=== PATIENT | female | born 1965 | race Caucasian/White ===

== ENCOUNTER 2021-01-17 04:10 | Inpatient (IN) | payer OTHER ==
[2021-01-11 13:41] VITALS: BMI 23.9
[2021-01-17] MEDS ORDERED: VANCOMYCIN 1 GRAM (PRE-DOCKED) 1,000 MG/250 ML BAG IVPB ONE ×2 (07:00→11:12)
[2021-01-17] MEDS ORDERED: CEFAZOLIN 2 GM/D5W 2 GM/50 ML ML IVPB ONE (07:00)
[2021-01-17] MEDS ORDERED: ceFAZolin SODIUM 1 GM VIAL ONE (11:12)
[2021-01-17] MEDS ORDERED: BUPIVACAINE LIPOSOME/PF (EXPAREL) 266 MG/20 ML VIAL ONE (11:42)
[2021-01-17] MEDS ORDERED: MIDAZOLAM HCL 2 MG/2 ML SINGLE DOSE VIAL ONE ×3 (11:42→12:53)
[2021-01-17] MEDS ORDERED: VANCOMYCIN 1,000 MG VIAL (RESTRICTED TO ID ONLY) IVPB ONE (12:35)
[2021-01-17] MEDS ORDERED: TRANEXAMIC ACID 1000 MG/10 ML VIAL ONE ×2 (12:50→15:18)
[2021-01-17] MEDS ORDERED: ceFAZolin 2 GRAM PREMIX BAG IVPB ONE (12:50)
[2021-01-17] MEDS ORDERED: PROPOFOL 20 ML ONE ×6 (12:51→14:55)
[2021-01-17] MEDS ORDERED: traMADol HCL 50 MG TABLET PO PRN (15:23)
[2021-01-17] MEDS ORDERED: oxyCODONE HCL 5 MG TABLET PO PRN ×2 (15:23)
[2021-01-17] MEDS ORDERED: ONDANSETRON 4 MG/2 ML VIAL IVPUSH PRN ×2 (15:23)
[2021-01-17] MEDS ORDERED: MAGNESIUM HYDROX 2400MG/30ML ORAL SUSPENSION 30 ML CUP PO PRN (15:23)
[2021-01-17] MEDS ORDERED: MAG HYDROX/AL HYDROX/SIMETH 30 ML UNIT-DOSE CUP PO PRN (15:23)
[2021-01-17] MEDS ORDERED: LACTATED RINGERS SOLUTION 1,000 ML IV SCH (15:30)
[2021-01-17] MEDS ORDERED: MEPERIDINE HCL 25 MG/ML VIAL IVPUSH ONE (15:54)
[2021-01-17] MEDS ORDERED: MEPERIDINE HCL CARPU-JECT 25 MG/1 ML DISP.SYRIN IVPUSH ONE (16:10)
[2021-01-17] MEDS: oxyCODONE HCL 5 MG TABLET PO PRN ×2 (17:32→21:59)
[2021-01-17] MEDS: LACTATED RINGERS SOLUTION 1,000 ML IV SCH (18:27)
[2021-01-17] MEDS: CEFAZOLIN 2 GM/D5W 2 GM/50 ML ML IVPB SCH (18:28)
[2021-01-17] MEDS: ACETAMINOPHEN 325 MG TABLET (FP) PO SCH (18:37)
[2021-01-17] MEDS: ASPIRIN COATED 81 MG TABLET.EC PO SCH (21:58)
[2021-01-17] MEDS: SENNOSIDES/DOCUSATE COMBO (SENNA PLUS) TABLET (UD) PO SCH (21:58)
[2021-01-18] MEDS: ACETAMINOPHEN 325 MG TABLET (FP) PO SCH ×5 (00:56→21:15)
[2021-01-18] MEDS: CEFAZOLIN 2 GM/D5W 2 GM/50 ML ML IVPB SCH ×2 (01:01→10:09)
[2021-01-18] MEDS: LACTATED RINGERS SOLUTION 1,000 ML IV SCH (01:02)
[2021-01-18] MEDS: ZOLPIDEM TARTRATE 5 MG TABLET PO PRN ×2 (01:08→23:04)
[2021-01-18 08:22] LABS: BASO % 0.3 % (0-2.0); EOS % 0.2 % (0-4.5); HEMATOCRIT 33.5 % (32.4-45.2); HEMOGLOBIN 11.7 GM/dL (10.7-15.3); LYMPH % 17.5 % (8-40); MCH 31.9 pg (25.7-33.7); MEAN CELL VOLUME 91.1 fl (80-96); MEAN PLT VOLUME 9.2 fl (7.5-11.1); PLATELET COUNT 183 K/MM3 (134-434); RBC 3.68 M/mm3 (3.60-5.2); RDW 13.3 % (11.6-15.6); WHITE BLOOD COUNT 8.2 K/mm3 (4.0-10.0)
[2021-01-18] MEDS: oxyCODONE HCL 5 MG TABLET PO PRN ×2 (08:39→23:03)
[2021-01-18 09:06] LABS: ALBUMIN 3.5 g/dl (3.4-5.0); BILIRUBIN,TOTAL 0.8 mg/dL (0.2-1); CALCIUM 8.6 mg/dL (8.5-10.1)
[2021-01-18 09:07] LABS: BLOOD UREA NITROGEN 8.4 mg/dL (7-18); MAGNESIUM 1.8 mg/dL (1.8-2.4); TOT PROT 6.4 g/dl (6.4-8.2)
[2021-01-18 09:09] LABS: CREATININE 0.6 mg/dL (0.55-1.3); PHOSPHOROUS 2.7 mg/dL (2.5-4.9)
[2021-01-18] MEDS: ASPIRIN COATED 81 MG TABLET.EC PO SCH (09:53)
[2021-01-18] MEDS: ASCORBIC ACID 500 MG TABLET (FP) PO SCH (09:53)
[2021-01-18] MEDS: PANTOPRAZOLE 40 MG TABLET PO SCH (09:54)
[2021-01-18] MEDS: CHOLECALCIFEROL (VIT D3) 1,000 UNIT (25 MCG) TABLET PO SCH (09:54)
[2021-01-18] MEDS: MULTIVITAMINS (DAILY MVI) TABLET (FP) PO SCH (09:54)
[2021-01-18] MEDS: SENNOSIDES/DOCUSATE COMBO (SENNA PLUS) TABLET (UD) PO SCH ×2 (09:54→21:17)
[2021-01-18] MEDS ORDERED: ONDANSETRON 4 MG/2 ML VIAL IVPUSH ONE (12:41)
[2021-01-18] MEDS: ENOXAPARIN NA (PORCINE) 60 MG/0.6 ML DISP.SYRIN SQ SCH ×2 (15:14→21:16)
[2021-01-19] MEDS: oxyCODONE HCL 5 MG TABLET PO PRN ×5 (02:16→22:03)
[2021-01-19] MEDS: ACETAMINOPHEN 325 MG TABLET (FP) PO SCH ×4 (06:05→22:04)
[2021-01-19 08:19] LABS: HEMATOCRIT 29.2 % (32.4-45.2); HEMOGLOBIN 9.9 GM/dL (10.7-15.3); MCH 31.2 pg (25.7-33.7); MCHC 33.8 g/dl (32.0-36.0); MEAN CELL VOLUME 92.4 fl (80-96); MEAN PLT VOLUME 9.2 fl (7.5-11.1); PLATELET COUNT 154 K/MM3 (134-434); RBC 3.16 M/mm3 (3.60-5.2); RDW 13.3 % (11.6-15.6)
[2021-01-19 08:35] LABS: CALCIUM 8.4 mg/dL (8.5-10.1)
[2021-01-19 08:36] LABS: BLOOD UREA NITROGEN 5.9 mg/dL (7-18)
[2021-01-19 08:39] LABS: CREATININE 0.8 mg/dL (0.55-1.3); PHOSPHOROUS 2.1 mg/dL (2.5-4.9)
[2021-01-19 08:40] LABS: BILIRUBIN,TOTAL 0.5 mg/dL (0.2-1); TOT PROT 5.8 g/dl (6.4-8.2)
[2021-01-19] MEDS: SENNOSIDES/DOCUSATE COMBO (SENNA PLUS) TABLET (UD) PO SCH ×2 (09:42→22:06)
[2021-01-19] MEDS: CHOLECALCIFEROL (VIT D3) 1,000 UNIT (25 MCG) TABLET PO SCH (09:43)
[2021-01-19] MEDS: ASCORBIC ACID 500 MG TABLET (FP) PO SCH (09:43)
[2021-01-19] MEDS: ENOXAPARIN NA (PORCINE) 60 MG/0.6 ML DISP.SYRIN SQ SCH (09:43)
[2021-01-19] MEDS: MULTIVITAMINS (DAILY MVI) TABLET (FP) PO SCH (09:43)
[2021-01-19] MEDS: PANTOPRAZOLE 40 MG TABLET PO SCH (09:43)
[2021-01-19] MEDS ORDERED: morphine SULFATE 4 MG/ML VIAL IVPUSH PRN (11:39)
[2021-01-19] MEDS: ENOXAPARIN NA (PORCINE) 80 MG/0.8 ML DISP.SYRIN SQ SCH (22:08)
[2021-01-19] MEDS: ZOLPIDEM TARTRATE 5 MG TABLET PO PRN (22:27)
[2021-01-20] MEDS: ACETAMINOPHEN 325 MG TABLET (FP) PO SCH ×2 (04:01→10:47)
[2021-01-20 09:20] LABS: BASO % 0.5 % (0-2.0); EOS % 0.2 % (0-4.5); HEMATOCRIT 25.8 % (32.4-45.2); HEMOGLOBIN 8.8 GM/dL (10.7-15.3); LYMPH % 22.2 % (8-40); MCH 31.5 pg (25.7-33.7); MCHC 34.3 g/dl (32.0-36.0); MEAN CELL VOLUME 91.9 fl (80-96); MEAN PLT VOLUME 10.2 fl (7.5-11.1); MONO % 8.9 % (3.8-10.2); NEUT % 68.2 % (42.8-82.8); PLATELET COUNT 156 K/MM3 (134-434); RBC 2.81 M/mm3 (3.60-5.2); RDW 13.1 % (11.6-15.6); WHITE BLOOD COUNT 10.7 K/mm3 (4.0-10.0)
[2021-01-20 10:06] LABS: BLOOD UREA NITROGEN 8.1 mg/dL (7-18)
[2021-01-20 10:07] LABS: PHOSPHOROUS 2.3 mg/dL (2.5-4.9)
[2021-01-20 10:09] LABS: CALCIUM 8.4 mg/dL (8.5-10.1); CREATININE 0.7 mg/dL (0.55-1.3)
[2021-01-20] MEDS ORDERED: PT OWN MED DRAWER 7, Y5N ONE (10:25)
[2021-01-20] MEDS: oxyCODONE HCL 5 MG TABLET PO PRN (10:47)
[2021-01-20] MEDS: SENNOSIDES/DOCUSATE COMBO (SENNA PLUS) TABLET (UD) PO SCH ×2 (10:50→21:57)
[2021-01-20] MEDS: MULTIVITAMINS (DAILY MVI) TABLET (FP) PO SCH (10:50)
[2021-01-20] MEDS: ASCORBIC ACID 500 MG TABLET (FP) PO SCH (10:50)
[2021-01-20] MEDS: CHOLECALCIFEROL (VIT D3) 1,000 UNIT (25 MCG) TABLET PO SCH (10:50)
[2021-01-20] MEDS: ENOXAPARIN NA (PORCINE) 80 MG/0.8 ML DISP.SYRIN SQ SCH ×2 (10:50→21:55)
[2021-01-20] MEDS: PANTOPRAZOLE 40 MG TABLET PO SCH (10:50)
[2021-01-20] MEDS ORDERED: oxyCODONE HCL 5 MG TABLET PO PRN (15:54)
[2021-01-20] MEDS ORDERED: ACETAMINOPHEN 1000 MG/100 ML VIAL (NON FORMULARY) IVPB ONE (21:03)
[2021-01-20] MEDS ORDERED: ZOLPIDEM TARTRATE 5 MG TABLET PO ONE (23:47)
[2021-01-21] MEDS: oxyCODONE HCL 5 MG TABLET PO PRN ×4 (03:52→23:12)
[2021-01-21] MEDS: SENNOSIDES/DOCUSATE COMBO (SENNA PLUS) TABLET (UD) PO SCH ×2 (09:54→21:19)
[2021-01-21] MEDS: MULTIVITAMINS (DAILY MVI) TABLET (FP) PO SCH (09:54)
[2021-01-21] MEDS: PANTOPRAZOLE 40 MG TABLET PO SCH (09:54)
[2021-01-21] MEDS: CHOLECALCIFEROL (VIT D3) 1,000 UNIT (25 MCG) TABLET PO SCH (09:54)
[2021-01-21] MEDS: ASCORBIC ACID 500 MG TABLET (FP) PO SCH (09:54)
[2021-01-21] MEDS: ENOXAPARIN NA (PORCINE) 80 MG/0.8 ML DISP.SYRIN SQ SCH ×2 (09:54→21:19)
[2021-01-21 10:29] LABS: BASO % 0.3 % (0-2.0); EOS % 0.1 % (0-4.5); HEMATOCRIT 23.4 % (32.4-45.2); HEMOGLOBIN 7.9 GM/dL (10.7-15.3); LYMPH % 18.8 % (8-40); MCH 31.1 pg (25.7-33.7); MCHC 33.7 g/dl (32.0-36.0); MEAN CELL VOLUME 92.6 fl (80-96); MEAN PLT VOLUME 9.1 fl (7.5-11.1); MONO % 6.8 % (3.8-10.2); PLATELET COUNT 205 K/MM3 (134-434); RBC 2.52 M/mm3 (3.60-5.2); RDW 13.2 % (11.6-15.6); WHITE BLOOD COUNT 11.1 K/mm3 (4.0-10.0)
[2021-01-21 10:55] LABS: ALBUMIN 2.5 g/dl (3.4-5.0); BLOOD UREA NITROGEN 8.4 mg/dL (7-18); MAGNESIUM 1.9 mg/dL (1.8-2.4)
[2021-01-21 10:58] LABS: CREATININE 0.8 mg/dL (0.55-1.3); PHOSPHOROUS 2.2 mg/dL (2.5-4.9)
[2021-01-21 11:00] LABS: BILIRUBIN,TOTAL 0.6 mg/dL (0.2-1)
[2021-01-21 12:13] LABS: RETICULOCYTES 2.01 % (0.5-1.5)
[2021-01-21] MEDS ORDERED: NAPH,MB-DB/K PH,MBDB POWDER PACKET PO ONE (14:15)
[2021-01-21] MEDS ORDERED: ZOLPIDEM TARTRATE 5 MG TABLET PO ONE (22:46)
[2021-01-22 08:15] LABS: BASO % 0.5 % (0-2.0); EOS % 0.7 % (0-4.5); HEMATOCRIT 21.1 % (32.4-45.2); HEMOGLOBIN 7.2 GM/dL (10.7-15.3); MCH 31.5 pg (25.7-33.7); MCHC 34.3 g/dl (32.0-36.0); MEAN CELL VOLUME 91.6 fl (80-96); MEAN PLT VOLUME 8.3 fl (7.5-11.1); MONO % 11.7 % (3.8-10.2); NEUT % 55.1 % (42.8-82.8); PLATELET COUNT 224 K/MM3 (134-434); RDW 13.4 % (11.6-15.6); RETICULOCYTES 2.58 % (0.5-1.5); WHITE BLOOD COUNT 7.9 K/mm3 (4.0-10.0)
[2021-01-22] MEDS: oxyCODONE HCL 5 MG TABLET PO PRN ×2 (08:43→21:16)
[2021-01-22 09:03] LABS: ALBUMIN 2.5 g/dl (3.4-5.0); CALCIUM 8.6 mg/dL (8.5-10.1); MAGNESIUM 2.1 mg/dL (1.8-2.4)
[2021-01-22 09:06] LABS: CREATININE 0.6 mg/dL (0.55-1.3); PHOSPHOROUS 2.9 mg/dL (2.5-4.9)
[2021-01-22 09:07] LABS: BILIRUBIN,TOTAL 0.8 mg/dL (0.2-1)
[2021-01-22] MEDS: PANTOPRAZOLE 40 MG TABLET PO SCH (10:31)
[2021-01-22] MEDS: ASCORBIC ACID 500 MG TABLET (FP) PO SCH (10:31)
[2021-01-22] MEDS: ENOXAPARIN NA (PORCINE) 80 MG/0.8 ML DISP.SYRIN SQ SCH ×2 (10:31→21:14)
[2021-01-22] MEDS: CHOLECALCIFEROL (VIT D3) 1,000 UNIT (25 MCG) TABLET PO SCH (10:31)
[2021-01-22] MEDS: MULTIVITAMINS (DAILY MVI) TABLET (FP) PO SCH (10:31)
[2021-01-22] MEDS: SENNOSIDES/DOCUSATE COMBO (SENNA PLUS) TABLET (UD) PO SCH ×2 (10:31→21:15)
[2021-01-23 08:58] LABS: BASO % 0.6 % (0-2.0); EOS % 1.8 % (0-4.5); HEMATOCRIT 25.7 % (32.4-45.2); HEMOGLOBIN 8.8 GM/dL (10.7-15.3); LYMPH % 29.3 % (8-40); MCH 30.8 pg (25.7-33.7); MCHC 34.2 g/dl (32.0-36.0); MEAN CELL VOLUME 90.2 fl (80-96); MEAN PLT VOLUME 8.7 fl (7.5-11.1); MONO % 12.2 % (3.8-10.2); NEUT % 56.1 % (42.8-82.8); PLATELET COUNT 256 K/MM3 (134-434); RBC 2.85 M/mm3 (3.60-5.2); RDW 13.8 % (11.6-15.6); WHITE BLOOD COUNT 6.3 K/mm3 (4.0-10.0)
[2021-01-23] MEDS: oxyCODONE HCL 5 MG TABLET PO PRN ×2 (09:04→21:15)
[2021-01-23 10:00] LABS: ALBUMIN 2.7 g/dl (3.4-5.0); BLOOD UREA NITROGEN 8.4 mg/dL (7-18); CALCIUM 8.2 mg/dL (8.5-10.1); MAGNESIUM 2.2 mg/dL (1.8-2.4)
[2021-01-23 10:03] LABS: CREATININE 0.6 mg/dL (0.55-1.3); PHOSPHOROUS 2.9 mg/dL (2.5-4.9)
[2021-01-23 10:04] LABS: TOT PROT 6.3 g/dl (6.4-8.2)
[2021-01-23 10:28] LABS: BILIRUBIN,TOTAL 1.1 mg/dL (0.2-1)
[2021-01-23] MEDS: ASCORBIC ACID 500 MG TABLET (FP) PO SCH (10:41)
[2021-01-23] MEDS: SENNOSIDES/DOCUSATE COMBO (SENNA PLUS) TABLET (UD) PO SCH ×2 (10:41→21:10)
[2021-01-23] MEDS: MULTIVITAMINS (DAILY MVI) TABLET (FP) PO SCH (10:41)
[2021-01-23] MEDS: PANTOPRAZOLE 40 MG TABLET PO SCH (10:41)
[2021-01-23] MEDS: CHOLECALCIFEROL (VIT D3) 1,000 UNIT (25 MCG) TABLET PO SCH (10:41)
[2021-01-23] MEDS: ENOXAPARIN NA (PORCINE) 80 MG/0.8 ML DISP.SYRIN SQ SCH ×2 (10:41→21:10)
[2021-01-23] MEDS: ZOLPIDEM TARTRATE 5 MG TABLET PO SCH (23:00)
[2021-01-24] MEDS ORDERED: morphine SULFATE 4 MG/ML VIAL IVPUSH ONE (00:30)
[2021-01-24 07:43] LABS: BASO % 0.4 % (0-2.0); EOS % 0.4 % (0-4.5); HEMATOCRIT 24.1 % (32.4-45.2); HEMOGLOBIN 8.5 GM/dL (10.7-15.3); LYMPH % 19.6 % (8-40); MCH 31.4 pg (25.7-33.7); MEAN CELL VOLUME 89.6 fl (80-96); MEAN PLT VOLUME 7.9 fl (7.5-11.1); MONO % 11.8 % (3.8-10.2); NEUT % 67.8 % (42.8-82.8); PLATELET COUNT 132 K/MM3 (134-434); RDW 13.8 % (11.6-15.6); WHITE BLOOD COUNT 8.4 K/mm3 (4.0-10.0)
[2021-01-24 08:00] LABS: ALBUMIN 2.6 g/dl (3.4-5.0); CALCIUM 7.9 mg/dL (8.5-10.1); MAGNESIUM 2.2 mg/dL (1.8-2.4)
[2021-01-24 08:03] LABS: CREATININE 0.7 mg/dL (0.55-1.3)
[2021-01-24 08:04] LABS: PHOSPHOROUS 2.7 mg/dL (2.5-4.9)
[2021-01-24 08:05] LABS: BILIRUBIN,TOTAL 1.1 mg/dL (0.2-1); TOT PROT 5.8 g/dl (6.4-8.2)
[2021-01-24] MEDS ORDERED: ACETAMINOPHEN 1000 MG/100 ML VIAL (NON FORMULARY) IVPB PRN (08:48)
[2021-01-24] MEDS ORDERED: morphine SULFATE 4 MG/ML VIAL IVPUSH PRN (08:49)
[2021-01-24] MEDS: SENNOSIDES/DOCUSATE COMBO (SENNA PLUS) TABLET (UD) PO SCH ×2 (09:48→21:26)
[2021-01-24] MEDS: ASCORBIC ACID 500 MG TABLET (FP) PO SCH (09:49)
[2021-01-24] MEDS: CHOLECALCIFEROL (VIT D3) 1,000 UNIT (25 MCG) TABLET PO SCH (09:49)
[2021-01-24] MEDS: PANTOPRAZOLE 40 MG TABLET PO SCH (09:49)
[2021-01-24] MEDS: ENOXAPARIN NA (PORCINE) 80 MG/0.8 ML DISP.SYRIN SQ SCH ×2 (09:49→21:26)
[2021-01-24] MEDS: MULTIVITAMINS (DAILY MVI) TABLET (FP) PO SCH (09:49)
[2021-01-24] MEDS ORDERED: WARFARIN NA 5 MG TABLET PO ONE (18:00)
[2021-01-24] MEDS ORDERED: WARFARIN NA 5 MG TABLET PO SCH (18:00)
[2021-01-24] MEDS ORDERED: ENOXAPARIN NA (PORCINE) 80 MG/0.8 ML DISP.SYRIN SQ SCH (18:00)
[2021-01-24] MEDS: oxyCODONE HCL 5 MG TABLET PO PRN (21:25)
[2021-01-24] MEDS ORDERED: APIXABAN 5 MG TABLET PO SCH (22:00)
[2021-01-24] MEDS: ZOLPIDEM TARTRATE 5 MG TABLET PO SCH (22:44)
[2021-01-25] MEDS ORDERED: ACETAMINOPHEN 325 MG TABLET (FP) PO ONE (04:17)
[2021-01-25 09:07] LABS: BASO % 0.5 % (0-2.0); EOS % 0.7 % (0-4.5); HEMATOCRIT 25.9 % (32.4-45.2); HEMOGLOBIN 8.8 GM/dL (10.7-15.3); INR 1.24 (0.83-1.09); MCH 31.2 pg (25.7-33.7); MEAN CELL VOLUME 91.6 fl (80-96); MEAN PLT VOLUME 8.3 fl (7.5-11.1); MONO % 9.5 % (3.8-10.2); NEUT % 67.3 % (42.8-82.8); PLATELET COUNT 83 K/MM3 (134-434); PROTHROMBIN TIME (PATIENT) 14.9 SEC (9.7-13.0); RBC 2.83 M/mm3 (3.60-5.2); RDW 13.8 % (11.6-15.6); WHITE BLOOD COUNT 10.2 K/mm3 (4.0-10.0)
[2021-01-25 09:29] LABS: CALCIUM 8.2 mg/dL (8.5-10.1)
[2021-01-25 09:30] LABS: ALBUMIN 2.5 g/dl (3.4-5.0); BLOOD UREA NITROGEN 9.1 mg/dL (7-18); MAGNESIUM 2.4 mg/dL (1.8-2.4)
[2021-01-25 09:33] LABS: CREATININE 0.7 mg/dL (0.55-1.3); PHOSPHOROUS 3.1 mg/dL (2.5-4.9)
[2021-01-25 09:34] LABS: BILIRUBIN,TOTAL 0.8 mg/dL (0.2-1); TOT PROT 5.9 g/dl (6.4-8.2)
[2021-01-25] MEDS: ASCORBIC ACID 500 MG TABLET (FP) PO SCH (09:53)
[2021-01-25] MEDS: SENNOSIDES/DOCUSATE COMBO (SENNA PLUS) TABLET (UD) PO SCH ×2 (09:53→21:23)
[2021-01-25] MEDS: CHOLECALCIFEROL (VIT D3) 1,000 UNIT (25 MCG) TABLET PO SCH (09:53)
[2021-01-25] MEDS: PANTOPRAZOLE 40 MG TABLET PO SCH (09:53)
[2021-01-25] MEDS: MULTIVITAMINS (DAILY MVI) TABLET (FP) PO SCH (09:53)
[2021-01-25] MEDS: ENOXAPARIN NA (PORCINE) 80 MG/0.8 ML DISP.SYRIN SQ SCH ×2 (09:54→21:23)
[2021-01-25 13:23] LABS: EPI CELLS 3 /uL (0-25.1); HYALINE CASTS 0 /uL (0-3.1); URINE APPEARANCE CLEAR; URINE BACTERIA 12 /uL (0-1359); URINE BILIRUBIN NEGATIVE (NEGATIVE); URINE COLOR YELLOW; URINE GLUCOSE (UA) NEGATIVE (NEGATIVE); URINE KETONE NEGATIVE (NEGATIVE); URINE LEUK ESTERASE NEGATIVE (NEGATIVE); URINE NITRITE NEGATIVE (NEGATIVE); URINE PROTEIN NEGATIVE (NEGATIVE); URINE RBC 207 /uL (0-23.9); URINE WBC 4 /uL (0-25.8)
[2021-01-25] MEDS: ZOLPIDEM TARTRATE 5 MG TABLET PO SCH (21:23)
[2021-01-26] MEDS ORDERED: ACETAMINOPHEN 325 MG TABLET (FP) PO ONE (05:06)
[2021-01-26 09:27] LABS: BASO % 0.5 % (0-2.0); EOS % 0.6 % (0-4.5); HEMATOCRIT 28.1 % (32.4-45.2); HEMOGLOBIN 9.5 GM/dL (10.7-15.3); LYMPH % 15.6 % (8-40); MCH 30.8 pg (25.7-33.7); MCHC 33.6 g/dl (32.0-36.0); MEAN CELL VOLUME 91.4 fl (80-96); MEAN PLT VOLUME 8.9 fl (7.5-11.1); MONO % 7.9 % (3.8-10.2); NEUT % 75.4 % (42.8-82.8); PLATELET COUNT 107 K/MM3 (134-434); RBC 3.08 M/mm3 (3.60-5.2); RDW 13.8 % (11.6-15.6); WHITE BLOOD COUNT 12.3 K/mm3 (4.0-10.0)
[2021-01-26 09:31] LABS: INR 1.19 (0.83-1.09); PROTHROMBIN TIME (PATIENT) 14.6 SEC (9.7-13.0)
[2021-01-26 10:03] LABS: ALBUMIN 2.9 g/dl (3.4-5.0); BLOOD UREA NITROGEN 9.1 mg/dL (7-18); CALCIUM 8.8 mg/dL (8.5-10.1); MAGNESIUM 2.4 mg/dL (1.8-2.4)
[2021-01-26 10:06] LABS: CREATININE 0.7 mg/dL (0.55-1.3); PHOSPHOROUS 3.1 mg/dL (2.5-4.9)
[2021-01-26 10:08] LABS: BILIRUBIN,TOTAL 1.2 mg/dL (0.2-1); TOT PROT 6.6 g/dl (6.4-8.2)
[2021-01-26] MEDS: ENOXAPARIN NA (PORCINE) 80 MG/0.8 ML DISP.SYRIN SQ SCH ×2 (10:13→22:14)
[2021-01-26] MEDS: PANTOPRAZOLE 40 MG TABLET PO SCH (10:15)
[2021-01-26] MEDS: CHOLECALCIFEROL (VIT D3) 1,000 UNIT (25 MCG) TABLET PO SCH (10:15)
[2021-01-26] MEDS: ASCORBIC ACID 500 MG TABLET (FP) PO SCH (10:15)
[2021-01-26] MEDS: MULTIVITAMINS (DAILY MVI) TABLET (FP) PO SCH (10:15)
[2021-01-26] MEDS: SENNOSIDES/DOCUSATE COMBO (SENNA PLUS) TABLET (UD) PO SCH ×2 (10:16→22:11)
[2021-01-26] MEDS: oxyCODONE HCL 5 MG TABLET PO PRN ×2 (12:27→22:11)
[2021-01-26] MEDS: WARFARIN NA 5 MG TABLET PO SCH (17:34)
[2021-01-26] MEDS ORDERED: WARFARIN PROTOCOL PO SCH (18:00)
[2021-01-26] MEDS: ACETAMINOPHEN 325 MG TABLET (FP) PO PRN (23:17)
[2021-01-27] MEDS: ZOLPIDEM TARTRATE 5 MG TABLET PO SCH (00:16)
[2021-01-27] MEDS: ENOXAPARIN NA (PORCINE) 80 MG/0.8 ML DISP.SYRIN SQ SCH ×2 (09:49→22:13)
[2021-01-27] MEDS: CHOLECALCIFEROL (VIT D3) 1,000 UNIT (25 MCG) TABLET PO SCH (09:49)
[2021-01-27] MEDS: PANTOPRAZOLE 40 MG TABLET PO SCH (09:49)
[2021-01-27] MEDS: ASCORBIC ACID 500 MG TABLET (FP) PO SCH (09:50)
[2021-01-27] MEDS: MULTIVITAMINS (DAILY MVI) TABLET (FP) PO SCH (09:50)
[2021-01-27] MEDS: SENNOSIDES/DOCUSATE COMBO (SENNA PLUS) TABLET (UD) PO SCH ×2 (09:50→22:14)
[2021-01-27 09:53] LABS: BASO % 0.5 % (0-2.0); HEMATOCRIT 30.7 % (32.4-45.2); HEMOGLOBIN 10.1 GM/dL (10.7-15.3); LYMPH % 16.3 % (8-40); MCH 30.5 pg (25.7-33.7); MCHC 32.9 g/dl (32.0-36.0); MEAN CELL VOLUME 92.6 fl (80-96); MONO % 7.5 % (3.8-10.2); NEUT % 74.7 % (42.8-82.8); PLATELET COUNT 129 K/MM3 (134-434); RBC 3.31 M/mm3 (3.60-5.2); RDW 13.9 % (11.6-15.6)
[2021-01-27 09:56] LABS: INR 1.25 (0.83-1.09)
[2021-01-27 10:15] LABS: ALBUMIN 3.3 g/dl (3.4-5.0); BLOOD UREA NITROGEN 11.7 mg/dL (7-18); CALCIUM 8.6 mg/dL (8.5-10.1)
[2021-01-27 10:18] LABS: CREATININE 0.8 mg/dL (0.55-1.3)
[2021-01-27 10:20] LABS: TOT PROT 7.2 g/dl (6.4-8.2)
[2021-01-27] MEDS: oxyCODONE HCL 5 MG TABLET PO PRN (11:06)
[2021-01-27] MEDS ORDERED: ACETAMINOPHEN 1000 MG/100 ML VIAL (NON FORMULARY) IVPB ONE (11:49)
[2021-01-27] MEDS: HYDROmorphone HCl 2 MG/ML VIAL IVPB PRN ×2 (12:04→22:13)
[2021-01-27] MEDS: WARFARIN NA 5 MG TABLET PO SCH (17:11)
[2021-01-28] MEDS: ZOLPIDEM TARTRATE 5 MG TABLET PO SCH ×2 (00:16→21:55)
[2021-01-28 09:44] LABS: INR 1.26 (0.83-1.09); PROTHROMBIN TIME (PATIENT) 15.4 SEC (9.7-13.0)
[2021-01-28 09:46] LABS: BASO % 0.6 % (0-2.0); EOS % 1.7 % (0-4.5); HEMATOCRIT 30.9 % (32.4-45.2); HEMOGLOBIN 10.3 GM/dL (10.7-15.3); LYMPH % 17.4 % (8-40); MCH 30.5 pg (25.7-33.7); MCHC 33.2 g/dl (32.0-36.0); MEAN CELL VOLUME 91.8 fl (80-96); MEAN PLT VOLUME 8.6 fl (7.5-11.1); MONO % 6.6 % (3.8-10.2); NEUT % 73.7 % (42.8-82.8); PLATELET COUNT 170 K/MM3 (134-434); RBC 3.37 M/mm3 (3.60-5.2); RDW 14.4 % (11.6-15.6); WHITE BLOOD COUNT 12.9 K/mm3 (4.0-10.0)
[2021-01-28] MEDS: SENNOSIDES/DOCUSATE COMBO (SENNA PLUS) TABLET (UD) PO SCH ×2 (10:23→21:56)
[2021-01-28] MEDS: MULTIVITAMINS (DAILY MVI) TABLET (FP) PO SCH (10:23)
[2021-01-28] MEDS: ENOXAPARIN NA (PORCINE) 80 MG/0.8 ML DISP.SYRIN SQ SCH (10:23)
[2021-01-28] MEDS: ASCORBIC ACID 500 MG TABLET (FP) PO SCH (10:23)
[2021-01-28] MEDS: PANTOPRAZOLE 40 MG TABLET PO SCH (10:23)
[2021-01-28] MEDS: CHOLECALCIFEROL (VIT D3) 1,000 UNIT (25 MCG) TABLET PO SCH (10:23)
[2021-01-28] MEDS: HYDROmorphone HCl 2 MG/ML VIAL IVPB PRN (10:38)
[2021-01-28 12:19] LABS: ANISOCYTOSIS 1+; MACROCYTOSIS 1+; PLATELET ESTIMATE NORMAL
[2021-01-28] MEDS ORDERED: WARFARIN NA 7.5 MG TABLET PO ONE (18:00)
[2021-01-28] MEDS: FONDAPARINUX SODIUM 7.5 MG/0.6 ML SYRINGE SQ SCH (21:56)
[2021-01-28] MEDS: oxyCODONE HCL 5 MG TABLET PO PRN (22:14)
[2021-01-29 09:22] LABS: BASO % 0.6 % (0-2.0); EOS % 1.7 % (0-4.5); HEMATOCRIT 28.4 % (32.4-45.2); HEMOGLOBIN 9.6 GM/dL (10.7-15.3); LYMPH % 18.3 % (8-40); MCH 30.8 pg (25.7-33.7); MCHC 33.7 g/dl (32.0-36.0); MEAN CELL VOLUME 91.3 fl (80-96); MEAN PLT VOLUME 8.2 fl (7.5-11.1); MONO % 8.6 % (3.8-10.2); NEUT % 70.8 % (42.8-82.8); PLATELET COUNT 218 K/MM3 (134-434); RBC 3.11 M/mm3 (3.60-5.2); RDW 13.8 % (11.6-15.6); WHITE BLOOD COUNT 10.6 K/mm3 (4.0-10.0)
[2021-01-29 09:27] LABS: INR 1.39 (0.83-1.09); PROTHROMBIN TIME (PATIENT) 16.7 SEC (9.7-13.0)
[2021-01-29] MEDS: MULTIVITAMINS (DAILY MVI) TABLET (FP) PO SCH (09:42)
[2021-01-29] MEDS: ASCORBIC ACID 500 MG TABLET (FP) PO SCH (09:42)
[2021-01-29] MEDS: SENNOSIDES/DOCUSATE COMBO (SENNA PLUS) TABLET (UD) PO SCH ×2 (09:42→21:21)
[2021-01-29] MEDS: CHOLECALCIFEROL (VIT D3) 1,000 UNIT (25 MCG) TABLET PO SCH (09:42)
[2021-01-29] MEDS: PANTOPRAZOLE 40 MG TABLET PO SCH (09:43)
[2021-01-29 09:52] LABS: ALBUMIN 3.1 g/dl (3.4-5.0); BLOOD UREA NITROGEN 9.7 mg/dL (7-18); CALCIUM 8.7 mg/dL (8.5-10.1)
[2021-01-29 09:53] LABS: BILIRUBIN,TOTAL 0.8 mg/dL (0.2-1); MAGNESIUM 2.5 mg/dL (1.8-2.4)
[2021-01-29 09:55] LABS: CREATININE 0.7 mg/dL (0.55-1.3)
[2021-01-29 09:56] LABS: PHOSPHOROUS 3.4 mg/dL (2.5-4.9); TOT PROT 6.8 g/dl (6.4-8.2)
[2021-01-29 11:28] LABS: ANISOCYTOSIS 1+; MACROCYTOSIS 0; OVALOCYTE 1+; PLATELET ESTIMATE NORMAL; TEAR DROP CELLS 1+
[2021-01-29] MEDS: HYDROmorphone HCl 2 MG/ML VIAL IVPB PRN (11:49)
[2021-01-29] MEDS: WARFARIN NA 5 MG TABLET PO SCH (17:29)
[2021-01-29] MEDS: FONDAPARINUX SODIUM 7.5 MG/0.6 ML SYRINGE SQ SCH (21:22)
[2021-01-29] MEDS: oxyCODONE HCL 5 MG TABLET PO PRN (21:24)
[2021-01-29] MEDS ORDERED: FONDAPARINUX SODIUM SQ SCH (22:00)
[2021-01-29] MEDS: ZOLPIDEM TARTRATE 5 MG TABLET PO SCH (23:55)
[2021-01-30 09:13] LABS: INR 1.51 (0.83-1.09); PROTHROMBIN TIME (PATIENT) 18.4 SEC (9.7-13.0)
[2021-01-30 09:16] LABS: BASO % 0.7 % (0-2.0); EOS % 1.7 % (0-4.5); HEMATOCRIT 28.3 % (32.4-45.2); HEMOGLOBIN 9.4 GM/dL (10.7-15.3); LYMPH % 18.4 % (8-40); MCH 30.6 pg (25.7-33.7); MCHC 33.3 g/dl (32.0-36.0); MEAN CELL VOLUME 92.1 fl (80-96); MEAN PLT VOLUME 8.1 fl (7.5-11.1); MONO % 7.8 % (3.8-10.2); NEUT % 71.4 % (42.8-82.8); PLATELET COUNT 363 K/MM3 (134-434); RBC 3.08 M/mm3 (3.60-5.2); RDW 14.2 % (11.6-15.6); WHITE BLOOD COUNT 10.2 K/mm3 (4.0-10.0)
[2021-01-30 09:22] LABS: CALCIUM 8.7 mg/dL (8.5-10.1)
[2021-01-30 09:23] LABS: ALBUMIN 3.1 g/dl (3.4-5.0)
[2021-01-30 09:26] LABS: CREATININE 0.7 mg/dL (0.55-1.3); MAGNESIUM 2.5 mg/dL (1.8-2.4); PHOSPHOROUS 3.4 mg/dL (2.5-4.9)
[2021-01-30 09:27] LABS: BILIRUBIN,TOTAL 0.6 mg/dL (0.2-1); TOT PROT 6.6 g/dl (6.4-8.2)
[2021-01-30 09:31] LABS: BLOOD UREA NITROGEN 14.7 mg/dL (7-18)
[2021-01-30] MEDS: MULTIVITAMINS (DAILY MVI) TABLET (FP) PO SCH (09:56)
[2021-01-30] MEDS: PANTOPRAZOLE 40 MG TABLET PO SCH (09:56)
[2021-01-30] MEDS: SENNOSIDES/DOCUSATE COMBO (SENNA PLUS) TABLET (UD) PO SCH ×2 (09:56→21:15)
[2021-01-30] MEDS: CHOLECALCIFEROL (VIT D3) 1,000 UNIT (25 MCG) TABLET PO SCH (09:56)
[2021-01-30] MEDS: ASCORBIC ACID 500 MG TABLET (FP) PO SCH (09:56)
[2021-01-30 11:27] LABS: ANISOCYTOSIS 1+; MACROCYTOSIS 0; PLATELET ESTIMATE NORMAL
[2021-01-30] MEDS: WARFARIN NA 5 MG TABLET PO SCH (17:09)
[2021-01-30] MEDS: FONDAPARINUX SODIUM 7.5 MG/0.6 ML SYRINGE SQ SCH (21:15)
[2021-01-30] MEDS: oxyCODONE HCL 5 MG TABLET PO PRN (21:21)
[2021-01-30] MEDS: HYDROmorphone HCl 2 MG/ML VIAL IVPB PRN (21:32)
[2021-01-30] MEDS: ZOLPIDEM TARTRATE 5 MG TABLET PO SCH (23:35)
[2021-01-31 08:18] LABS: BASO % 1.1 % (0-2.0); EOS % 1.5 % (0-4.5); HEMATOCRIT 29.9 % (32.4-45.2); HEMOGLOBIN 10.2 GM/dL (10.7-15.3); LYMPH % 21.4 % (8-40); MCH 31.1 pg (25.7-33.7); MEAN CELL VOLUME 91.4 fl (80-96); MEAN PLT VOLUME 7.7 fl (7.5-11.1); MONO % 8.7 % (3.8-10.2); NEUT % 67.3 % (42.8-82.8); PLATELET COUNT 524 K/MM3 (134-434); RBC 3.27 M/mm3 (3.60-5.2); RDW 14.1 % (11.6-15.6); WHITE BLOOD COUNT 10.5 K/mm3 (4.0-10.0)
[2021-01-31 08:29] LABS: INR 1.43 (0.83-1.09); PROTHROMBIN TIME (PATIENT) 17.1 SEC (9.7-13.0)
[2021-01-31] MEDS: ACETAMINOPHEN 325 MG TABLET (FP) PO PRN ×2 (08:30→21:56)
[2021-01-31 08:41] LABS: ALBUMIN 3.4 g/dl (3.4-5.0); CALCIUM 9.2 mg/dL (8.5-10.1)
[2021-01-31 08:43] LABS: MAGNESIUM 2.6 mg/dL (1.8-2.4)
[2021-01-31 08:44] LABS: CREATININE 0.7 mg/dL (0.55-1.3)
[2021-01-31 08:46] LABS: BILIRUBIN,TOTAL 0.5 mg/dL (0.2-1); TOT PROT 7.3 g/dl (6.4-8.2)
[2021-01-31 08:49] LABS: BLOOD UREA NITROGEN 13.5 mg/dL (7-18)
[2021-01-31] MEDS: MULTIVITAMINS (DAILY MVI) TABLET (FP) PO SCH (10:00)
[2021-01-31] MEDS: PANTOPRAZOLE 40 MG TABLET PO SCH (10:00)
[2021-01-31] MEDS: SENNOSIDES/DOCUSATE COMBO (SENNA PLUS) TABLET (UD) PO SCH ×2 (10:00→23:29)
[2021-01-31] MEDS: ASCORBIC ACID 500 MG TABLET (FP) PO SCH (10:00)
[2021-01-31] MEDS: CHOLECALCIFEROL (VIT D3) 1,000 UNIT (25 MCG) TABLET PO SCH (10:00)
[2021-01-31 12:03] LABS: ANISOCYTOSIS 2+; MACROCYTOSIS 1+; OVALOCYTE 1+; PLATELET ESTIMATE INCREASED; TEAR DROP CELLS 1+
[2021-01-31] MEDS ORDERED: WARFARIN NA 3 MG TABLET PO SCH (18:00)
[2021-01-31] MEDS: WARFARIN NA 7.5 MG TABLET PO SCH (18:00)
[2021-01-31] MEDS ORDERED: PT OWN MED DRAWER 7, Y5N ONE ×2 (18:04→23:23)
[2021-01-31] MEDS: ZOLPIDEM TARTRATE 5 MG TABLET PO SCH (23:29)
[2021-01-31] MEDS: LORATADINE 10 MG TABLET PO SCH (23:29)
[2021-01-31] MEDS: FONDAPARINUX SODIUM 7.5 MG/0.6 ML SYRINGE SQ SCH (23:49)
[2021-02-01 08:54] LABS: BASO % 1.4 % (0-2.0); HEMATOCRIT 29.9 % (32.4-45.2); HEMOGLOBIN 9.9 GM/dL (10.7-15.3); MCH 30.3 pg (25.7-33.7); MCHC 33.2 g/dl (32.0-36.0); MEAN CELL VOLUME 91.3 fl (80-96); MEAN PLT VOLUME 7.7 fl (7.5-11.1); MONO % 8.1 % (3.8-10.2); NEUT % 68.5 % (42.8-82.8); PLATELET COUNT 638 K/MM3 (134-434); RBC 3.28 M/mm3 (3.60-5.2); RDW 14.3 % (11.6-15.6); WHITE BLOOD COUNT 11.2 K/mm3 (4.0-10.0)
[2021-02-01 08:55] LABS: INR 1.62 (0.83-1.09); PROTHROMBIN TIME (PATIENT) 19.7 SEC (9.7-13.0)
[2021-02-01 09:27] LABS: CALCIUM 8.6 mg/dL (8.5-10.1)
[2021-02-01 09:28] LABS: ALBUMIN 3.3 g/dl (3.4-5.0); BLOOD UREA NITROGEN 11.7 mg/dL (7-18); MAGNESIUM 2.5 mg/dL (1.8-2.4)
[2021-02-01 09:30] LABS: CREATININE 0.7 mg/dL (0.55-1.3); PHOSPHOROUS 3.3 mg/dL (2.5-4.9)
[2021-02-01 09:31] LABS: BILIRUBIN,TOTAL 0.6 mg/dL (0.2-1); TOT PROT 7.1 g/dl (6.4-8.2)
[2021-02-01] MEDS: LORATADINE 10 MG TABLET PO SCH (09:37)
[2021-02-01] MEDS: CHOLECALCIFEROL (VIT D3) 1,000 UNIT (25 MCG) TABLET PO SCH (09:37)
[2021-02-01] MEDS: SENNOSIDES/DOCUSATE COMBO (SENNA PLUS) TABLET (UD) PO SCH ×2 (09:38→21:52)
[2021-02-01] MEDS: PANTOPRAZOLE 40 MG TABLET PO SCH (09:38)
[2021-02-01] MEDS: ASCORBIC ACID 500 MG TABLET (FP) PO SCH (09:38)
[2021-02-01] MEDS: MULTIVITAMINS (DAILY MVI) TABLET (FP) PO SCH (09:38)
[2021-02-01 15:21] LABS: ANISOCYTOSIS 1+; MACROCYTOSIS 0; PLATELET ESTIMATE INCREASED
[2021-02-01] MEDS: ACETAMINOPHEN 325 MG TABLET (FP) PO PRN ×2 (16:55→23:02)
[2021-02-01] MEDS ORDERED: PT OWN MED DRAWER 7, Y5N ONE ×2 (18:04→21:37)
[2021-02-01] MEDS: WARFARIN NA 7.5 MG TABLET PO SCH (18:13)
[2021-02-01] MEDS: ZOLPIDEM TARTRATE 5 MG TABLET PO SCH (21:49)
[2021-02-01] MEDS: FONDAPARINUX SODIUM 7.5 MG/0.6 ML SYRINGE SQ SCH (21:54)
[2021-02-02 09:00] LABS: INR 1.86 (0.83-1.09); PROTHROMBIN TIME (PATIENT) 22.1 SEC (9.7-13.0)
[2021-02-02 09:01] LABS: BASO % 1.1 % (0-2.0); EOS % 0.9 % (0-4.5); HEMATOCRIT 29.2 % (32.4-45.2); HEMOGLOBIN 10.2 GM/dL (10.7-15.3); LYMPH % 17.4 % (8-40); MCH 31.5 pg (25.7-33.7); MCHC 34.8 g/dl (32.0-36.0); MEAN CELL VOLUME 90.4 fl (80-96); MEAN PLT VOLUME 7.4 fl (7.5-11.1); MONO % 8.4 % (3.8-10.2); NEUT % 72.2 % (42.8-82.8); PLATELET COUNT 723 K/MM3 (134-434); RBC 3.23 M/mm3 (3.60-5.2); RDW 14.1 % (11.6-15.6)
[2021-02-02 09:14] LABS: ALBUMIN 3.2 g/dl (3.4-5.0); BLOOD UREA NITROGEN 12.1 mg/dL (7-18); MAGNESIUM 2.1 mg/dL (1.8-2.4)
[2021-02-02 09:17] LABS: CREATININE 0.7 mg/dL (0.55-1.3); PHOSPHOROUS 3.4 mg/dL (2.5-4.9)
[2021-02-02 09:18] LABS: BILIRUBIN,TOTAL 0.5 mg/dL (0.2-1)
[2021-02-02] MEDS: PANTOPRAZOLE 40 MG TABLET PO SCH (09:58)
[2021-02-02] MEDS: ASCORBIC ACID 500 MG TABLET (FP) PO SCH (09:58)
[2021-02-02] MEDS: CHOLECALCIFEROL (VIT D3) 1,000 UNIT (25 MCG) TABLET PO SCH (09:58)
[2021-02-02] MEDS: LORATADINE 10 MG TABLET PO SCH (09:58)
[2021-02-02] MEDS: MULTIVITAMINS (DAILY MVI) TABLET (FP) PO SCH (09:58)
[2021-02-02] MEDS: SENNOSIDES/DOCUSATE COMBO (SENNA PLUS) TABLET (UD) PO SCH ×2 (09:58→22:07)
[2021-02-02] MEDS ORDERED: PT OWN MED DRAWER 7, Y5N ONE ×2 (18:09→22:05)
[2021-02-02] MEDS: WARFARIN NA 7.5 MG TABLET PO SCH (18:10)
[2021-02-02] MEDS: ACETAMINOPHEN 325 MG TABLET (FP) PO PRN (19:38)
[2021-02-02] MEDS: ZOLPIDEM TARTRATE 5 MG TABLET PO SCH (22:07)
[2021-02-02] MEDS: FONDAPARINUX SODIUM 7.5 MG/0.6 ML SYRINGE SQ SCH (22:07)
[2021-02-03 08:34] LABS: INR 1.95 (0.83-1.09); PROTHROMBIN TIME (PATIENT) 23.5 SEC (9.7-13.0)
[2021-02-03] MEDS: PANTOPRAZOLE 40 MG TABLET PO SCH (10:07)
[2021-02-03] MEDS: CHOLECALCIFEROL (VIT D3) 1,000 UNIT (25 MCG) TABLET PO SCH (10:07)
[2021-02-03] MEDS: LORATADINE 10 MG TABLET PO SCH (10:07)
[2021-02-03] MEDS: ASCORBIC ACID 500 MG TABLET (FP) PO SCH (10:07)
[2021-02-03] MEDS: SENNOSIDES/DOCUSATE COMBO (SENNA PLUS) TABLET (UD) PO SCH ×2 (10:07→21:18)
[2021-02-03] MEDS: MULTIVITAMINS (DAILY MVI) TABLET (FP) PO SCH (10:08)
[2021-02-03] MEDS: ACETAMINOPHEN 325 MG TABLET (FP) PO PRN (12:50)
[2021-02-03 15:45] LABS: INR 1.81 (0.83-1.09); PROTHROMBIN TIME (PATIENT) 21.9 SEC (9.7-13.0)
[2021-02-03] MEDS ORDERED: PT OWN MED DRAWER 7, Y5N ONE ×2 (17:25→21:03)
[2021-02-03] MEDS: WARFARIN NA 7.5 MG TABLET PO SCH (17:29)
[2021-02-03] MEDS: FONDAPARINUX SODIUM 7.5 MG/0.6 ML SYRINGE SQ SCH (21:18)
[2021-02-03] MEDS: ZOLPIDEM TARTRATE 5 MG TABLET PO SCH (23:23)
[2021-02-04 08:49] LABS: BASO % 0.5 % (0-2.0); EOS % 1.1 % (0-4.5); HEMATOCRIT 30.7 % (32.4-45.2); HEMOGLOBIN 10.5 GM/dL (10.7-15.3); LYMPH % 30.3 % (8-40); MCHC 34.1 g/dl (32.0-36.0); MEAN CELL VOLUME 91.1 fl (80-96); MEAN PLT VOLUME 7.4 fl (7.5-11.1); MONO % 10.4 % (3.8-10.2); NEUT % 57.7 % (42.8-82.8); PLATELET COUNT 845 K/MM3 (134-434); RBC 3.37 M/mm3 (3.60-5.2); RDW 14.7 % (11.6-15.6); WHITE BLOOD COUNT 7.5 K/mm3 (4.0-10.0)
[2021-02-04] MEDS ORDERED: PT OWN MED DRAWER 7, Y5N ONE ×2 (09:38→11:06)
[2021-02-04] MEDS: LORATADINE 10 MG TABLET PO SCH (09:46)
[2021-02-04] MEDS: CHOLECALCIFEROL (VIT D3) 1,000 UNIT (25 MCG) TABLET PO SCH (09:46)
[2021-02-04] MEDS: PANTOPRAZOLE 40 MG TABLET PO SCH (09:46)
[2021-02-04] MEDS: MULTIVITAMINS (DAILY MVI) TABLET (FP) PO SCH (09:46)
[2021-02-04] MEDS: ASCORBIC ACID 500 MG TABLET (FP) PO SCH (09:46)
[2021-02-04] MEDS: SENNOSIDES/DOCUSATE COMBO (SENNA PLUS) TABLET (UD) PO SCH (09:46)
[2021-02-04 09:59] LABS: BILIRUBIN,TOTAL 0.4 mg/dL (0.2-1); TOT PROT 7.7 g/dl (6.4-8.2)
[2021-02-04 10:13] LABS: ALBUMIN 3.4 g/dl (3.4-5.0)
[2021-02-04 10:14] LABS: CALCIUM 9.7 mg/dL (8.5-10.1)
[2021-02-04 10:15] LABS: MAGNESIUM 2.3 mg/dL (1.8-2.4)
[2021-02-04 10:16] LABS: CREATININE 0.8 mg/dL (0.55-1.3); PHOSPHOROUS 3.4 mg/dL (2.5-4.9)
[2021-02-04 10:21] LABS: INR 2.22 (0.83-1.09); PROTHROMBIN TIME (PATIENT) 26.2 SEC (9.7-13.0)
[2021-02-04 10:40] VITALS: BP 130/81; PULSE 125; TEMP 98.2
[2021-02-04 11:53] LABS: ANISOCYTOSIS 0; MACROCYTOSIS 0; PLATELET ESTIMATE INCREASED
== END 2021-02-04 13:57 | DRG 302 ==
LOC: J2C 04:10 → J6S 17:26
PROVIDERS: ADMIT Orthopaedic Surgery; ATTEND Internal Medicine
PROC: 0SBD0ZZ Excision of Left Knee Joint, Open Approach (ICD-10-PCS; 2021-01-17)
PROC: 0SRD0JZ Replacement of Left Knee Joint with Synthetic Substitute, Open Approach (ICD-10-PCS; principal; 2021-01-17 12:30)
PROC: 30233N1 Transfusion of Nonautologous Red Blood Cells into Peripheral Vein, Percutaneous Approach (ICD-10-PCS; 2021-01-22)
DX: M17.12 Unilateral primary osteoarthritis, left knee (principal); I82.4Z2 Acute embolism and thrombosis of unspecified deep veins of left distal lower extremity; R91.1 Solitary pulmonary nodule; D75.82 Heparin induced thrombocytopenia (HIT); T81.72XA Complication of vein following a procedure, not elsewhere classified, initial encounter; Y83.9 Surgical procedure, unspecified as the cause of abnormal reaction of the patient, or of later complication, without mention of misadventure at the time of the procedure; R00.0 Tachycardia, unspecified; D64.9 Anemia, unspecified; D72.829 Elevated white blood cell count, unspecified
CPT/HCPCS: 36415; 36430; 71045-TC-FY; 71046-TC-FY; 71275-TC; 73560-TC-LT-FY; 76882-TC-RT-FY; 80048; 80053; 81003; 81240; 81241; 82272; 82542; 82962; 83735; 84100; 84439; 84443; 85025; 85027; 85045; 85610; 85613; 85732; 86022; 86850; 86900; 86901; 86922; 87040; 87086; 88304-TC; 88311-TC; 93005; 93010; 93971-TC; 94760; 97010-GP; 97116-GP; 97162-GP; C9803; J0131; P9058; Q9967; U0003; U0005